=== PATIENT | female | born 1980 | race Caucasian/White ===

== ENCOUNTER 2016-03-28 09:34 | Emergency (ER) | payer BC, OTHER ==
[2016-03-28 09:58] VITALS: RESP 16; TEMP 97.9
[2016-03-28] MEDS ORDERED: ONDANSETRON 4 MG/2 ML VIAL IVP ONE (09:58)
[2016-03-28] MEDS ORDERED: NS 1,000 ML IV ONE (09:58)
--- NOTE | 2016-03-28 11:22 | UCPHY ---
H & P Time Seen by Provider: 03/28/16 10:00 Patient Type: New HPI/ROS: This patient has vomiting and diarrhea since 3:30 a.m. this morning. She has had several episodes of both. She has mild lightheadedness while on her feet this morning is unable to tolerate anything by mouth due to her ongoing nausea and vomiting. She felt well yesterday prior to the onset of the symptoms. ROS: No high fevers or chills. No myalgias. HEENT: No nasal congestion or other URI symptoms. Pulmonary: No cough. Cardiovascular: Mild lightheadedness no chest pain or heart palpitations-GI: No significant belly pain except for mild intermittent cramping : No urinary symptoms. Last menstrual period was normal timing. 10 point ROS is otherwise negative Past Medical/Surgical History: Obesity Tubal ligation Social History: Her significant other had a similar vomiting illness last week. No international travel No suspect food Smoking Status: Former smoker Physical Exam: General Appearance: Pleasant obese 36-year-old female Alert, no distress. Eyes: Pupils equal and round no pallor or injection. ENT, Mouth: Mucous membranes dry. Respiratory: There are no retractions, lungs are clear to auscultation. Cardiovascular: Regular rate and rhythm. Gastrointestinal: Soft, diffuse mild belly tenderness without guarding or rebound. No organomegaly. Neurological: Alert with no focal deficits Skin: Warm and dry, no rashes. Musculoskeletal: Neck is supple nontender. Extremities are symmetrical, full range of motion. Psychiatric: Mood and affect normal DIFFERENTIAL DIAGNOSIS: After history and physical exam differential diagnosis was considered for viral gastroenteritis, food poisoning, doubt bacterial dysentery Constitutional: Initial Vital Signs Temperature (C) 36.6 C 03/28/16 09:56 Heart Rate 100 03/28/16 09:56 Respiratory Rate 16 03/28/16 09:56 Blood Pressure 129/80 H 03/28/16 09:56 O2 Sat (%) 95 03/28/16 09:56 O2 Delivery Mode Room Air Allergies/Adverse Reactions: latex Allergy (Verified 03/28/16 09:58) Home Medications: Medication Instructions Recorded Ondansetron Odt [Zofran Odt] 4 - 8 mg PO Q4PRN PRN #4 tab 03/28/16 Medical Decision Making ED Course/Re-evaluation: IV normal saline bolus, IV Zofran with resolution of nausea vomiting. She tolerated p. o. intake thereafter Discussion: Findings most consistent with viral gastroenteritis complicated by dehydration improved with treatment. - Data Points Medications Given: Discontinued Medications Sodium Chloride (Ns) 1,000 mls @ 0 mls/hr IV ONCE ONE PRN Reason: Wide Open Stop: 03/28/16 09:59 Last Admin: 03/28/16 10:20 Dose: 1,000 mls Ondansetron HCl (Zofran) 4 mg IVP EDNOW ONE Stop: 03/28/16 09:59 Last Admin: 03/28/16 10:20 Dose: 4 mg Departure - Departure Disposition: Home, Routine, Self-Care Clinical Impression: Viral gastroenteritis, Dehydration Instructions: Dehydration (ED), Gastroenteritis (ED) Additional Instructions: Diagnosis: Viral gastroenteritis Plan: Drink plenty fluids Light diet until he feel improved Zofran for nausea or vomiting as needed Imodium [id number] for diarrhea as needed Return for any significant worsening despite the treatment plan Referrals: NONE *PRIMARY CARE P,. [Primary Care Provider] - As per Instructions Prescriptions: Ondansetron Odt [Zofran Odt] 4 - 8 mg PO Q4PRN PRN #4 tab PRN Reason: Vomiting - PQRS PQRS Measurement: NA
[2016-03-28 11:41] VITALS: BP 120/78; PULSE 92; O2SAT 97
== END 2016-03-28 11:39 | disposition home or self-care (01) ==
LOC: CED 09:34
DX: A08.4 Viral intestinal infection, unspecified (principal); E86.0 Dehydration; Z87.891 Personal history of nicotine dependence
CPT/HCPCS: 96361-PO; 96374-PO; 99203-PO; G0463-PO

== ENCOUNTER → 2017-03-16 | Outpatient (CLI) | payer BC | LOC: BMCIMAGING 08:20 → EDSTATUS 08:22 | PROVIDERS: ATTEND Physician Assistant | DX: M17.12 Unilateral primary osteoarthritis, left knee (principal) ==

== ENCOUNTER → 2017-04-09 | Outpatient (CLI) | payer BC | LOC: FIMAGING 07:47 | PROVIDERS: ATTEND Physician Assistant | DX: Z01.818 Encounter for other preprocedural examination (principal); M25.862 Other specified joint disorders, left knee ==

== ENCOUNTER 2017-06-18 05:58 | Observation (INO) | payer BC ==
[2017-06-18] MEDS ORDERED: TRANEXAMIC ACID IV ONE (06:00)
[2017-06-18] MEDS ORDERED: NS IV ONE (06:00)
[2017-06-18] MEDS ORDERED: BUPI/epINEPH/KETOROLAC/morphINE IU ONE (06:00)
[2017-06-18] MEDS ORDERED: ROPIVACAINE 0.2% 80 MG, EPINEPHrine 0.2 MG, KETOROLAC TROMETHAMINE 30 MG, morphINE 10 M... IU ONE (06:00)
[2017-06-18] MEDS ORDERED: ceFAZolin 2 GM/SWFI 2 GM/20 ML SYR IVP ONE (06:10)
[2017-06-18] MEDS ORDERED: ACETAMINOPHEN 325 MG TAB PO ONE (06:10)
[2017-06-18] MEDS ORDERED: FAMOTIDINE 20 MG TAB PO ONE (06:10)
[2017-06-18] MEDS ORDERED: LR 1,000 ML IV ONE (06:13)
--- NOTE | 2017-06-18 06:40 | PDHPUP ---
History & Physical Update H&P update statement: This history and physical update is based on an assessment of the patient which was completed after admission or registration (within 24 hours), but prior to the surgery/procedure. H&P update: no change in patient's condition since H&P completed
--- NOTE | 2017-06-18 06:41 | PDIAF ---
- Diagnosis Diagnosis: left knee djd Code Status: Full Code - Medication Management Discharge Medications: Medications to Continue on Transfer Acetamn/Diphenhydramine 500/25 [Tylenol PM (*)] 1 each PO HS PRN 05/29/17 [Last Taken 06/16/17] Calcium Carbonate [Tums 500MG (*)] 500 - 1,000 mg PO TIDMEAL PRN 05/29/17 [Last Taken 06/16/17] Sertraline HCl [Zoloft 50mg (*)] 50 mg PO DAILY 05/29/17 [Last Taken 06/17/17] Discharge Medications: Refer to the Discharge Home Medication list for PRN reason. - Orders Services needed: Physical Therapy (wbat) Activity/Weight Bearing Restrictions: wbat. rom as virgilio. dressing changes. may shower without bandage. no soaking or immersion. follow up at two weeks [facility]. seek attn for increasing pain, cp, sob, leg swelling or pain, drainage - Follow Up Care Current Providers and Referrals: Leanne Finn PAC [Primary Care Provider] -
[2017-06-18] MEDS ORDERED: THROMBIN (BOVINE) 5,000 UNIT VIAL TP ONE (07:38)
[2017-06-18] MEDS ORDERED: CALCIUM CHLORIDE 1 GM/10 ML INJ ONE (07:38)
[2017-06-18] MEDS ORDERED: ceFAZolin 1 GM/5 ML SYR ONE (07:39)
--- NOTE | 2017-06-18 08:12 | PDANEPAE ---
ANE Past Medical History - Cardiovascular History Hx Hypertension: No Hx Arrhythmias: No Hx Chest Pain: No Hx Coronary Artery / Peripheral Vascular Disease: No Hx CHF / Valvular Disease: No Hx Palpitations: No - Pulmonary History Hx COPD: No Hx Asthma/Reactive Airway Disease: No Hx Recent Upper Respiratory Infection: No Hx Oxygen in Use at Home: No Hx Sleep Apnea: No Sleep Apnea Screening Result - Last Documented: Negative - Neurologic History Hx Cerebrovascular Accident: No Hx Seizures: No Hx Dementia: No - Endocrine History Hx Diabetes: No Hypothyroid: No Obesity: mild - Renal History Hx Renal Disorders: No - Liver History Hx Hepatic Disorders: No - Neurological & Psychiatric Hx Hx Neurological and Psychiatric Disorders: Yes Neurological / Psychiatric History Comment: INFREQUENT MIGRAINES. BIPOLAR - Cancer History Hx Cancer: No - Congenital Disorder History Hx Congenital Disorders: No - GI History Hx Gastrointestinal Disorders: Yes Gastrointestinal History Comment: DAILY HEARTBURN USES TUMES. HAS HIATAL HERNIA - Other Health History Other Health History: SEVERAL PREV INJURIES TO THE KNEE - Chronic Pain History Chronic Pain: Yes (LT KNEE) - Surgical History Prior Surgeries: TUBAL LIGATION 2007. LEEP. EGD ANE Review of Systems Review of Systems: - Exercise capacity METS (RN): 4 METS - Systems Constitutional: Reports: no symptoms Cardiac: Reports: no symptoms Respiratory: Reports: no symptoms Gastrointestinal: Reports: no symptoms ANE Patient History - Allergies Allergies/Adverse Reactions: latex Allergy (Verified 03/28/16 09:58) shellfish derived Allergy (Verified 05/29/17 10:47) - Home Medications Home Medications: Acetamn/Diphenhydramine 500/25 [Tylenol PM (*)] 1 each PO HS PRN 05/29/17 [Last Taken 06/16/17] Calcium Carbonate [Tums 500MG (*)] 500 - 1,000 mg PO TIDMEAL PRN 05/29/17 [Last Taken 06/16/17] Sertraline HCl [Zoloft 50mg (*)] 50 mg PO DAILY 05/29/17 [Last Taken 06/17/17] - NPO status NPO Since - Liquids (Date): 06/17/17 NPO Since - Liquids (Time): 20:30 NPO Since - Solids (Date): 06/17/17 NPO Since - Solids (Time): 20:30 - Anes Hx Anes Hx: no prior problems - Smoking Hx Smoking Status: Former smoker - Alcohol Use Alcohol Use: Rarely - Family Anes Hx Family Anes Hx: neg - N/A ANE Labs/Vital Signs - Vital Signs Blood Pressure: 131/81 Heart Rate: 86 Respiratory Rate: 16 O2 Sat (%): 96 Height: 175.26 cm Weight: 118.841 kg ANE Physical Exam - Airway Neck exam: FROM Mallampati Score: Class 2 Mouth exam: normal dental/mouth exam - Pulmonary Pulmonary: clear to auscultation - Cardiovascular Cardiovascular: regular rate and rhythym - ASA Status ASA Status: II ANE Anesthesia Plan Anesthesia Plan: spinal Regional Anesthesia: adductor canal FNB
[2017-06-18] MEDS ORDERED: RANITIDINE 50 MG/2 ML VIAL ONE (08:14)
[2017-06-18] MEDS ORDERED: DEXAMETHASONE 4 MG/ML VIAL ONE (08:14)
[2017-06-18] MEDS ORDERED: fentaNYL 100 MCG/2 ML INJ ONE (08:14)
[2017-06-18] MEDS ORDERED: LIDOCAINE 2% 5 ML SDV ONE (08:24)
[2017-06-18] MEDS ORDERED: PROPOFOL/EMULSION 500 MG/50 ML BOTTLE IV ONE ×2 (08:24→08:53)
[2017-06-18] MEDS ORDERED: ROPIVACAINE HCL 150 MG/30 ML INJ ONE (08:49)
[2017-06-18] MEDS ORDERED: diphenhydrAMINE 25 MG CAP PO PRN (09:18)
[2017-06-18] MEDS ORDERED: ONDANSETRON DISINTEGRATING 4 MG TAB PO PRN (09:18)
[2017-06-18] MEDS ORDERED: oxyCODONE IR 5 MG TAB PO PRN ×2 (09:18→09:27)
[2017-06-18] MEDS ORDERED: PROMETHAZINE HCL 25 MG/ML INJ IVP PRN (09:18)
[2017-06-18] MEDS ORDERED: MAGNESIUM HYDROXIDE 30 ML UDCUP PO PRN (09:18)
[2017-06-18] MEDS ORDERED: LACTULOSE 20 GM/30 ML UDCUP PO PRN (09:18)
[2017-06-18] MEDS ORDERED: DIPHENOXYLATE/ATROPINE LOMOTIL 1 TAB PO PRN (09:18)
[2017-06-18] MEDS ORDERED: TEMAZEPAM 15 MG CAP PO PRN (09:18)
[2017-06-18] MEDS ORDERED: DIAZEPAM 5 MG TAB PO PRN (09:18)
[2017-06-18] MEDS ORDERED: METOCLOPRAMIDE 10 MG/2 ML VIAL IVP PRN (09:18)
[2017-06-18] MEDS ORDERED: ONDANSETRON 4 MG/2 ML VIAL IVP PRN ×2 (09:18→09:27)
[2017-06-18] MEDS ORDERED: PROMETHAZINE HCL 25 MG SUPPR PR PRN (09:18)
[2017-06-18] MEDS ORDERED: POLYETHYLENE GLYCOL 3350 17 GM PKT PO PRN (09:18)
[2017-06-18] MEDS ORDERED: BISACODYL 10 MG SUPP PR PRN (09:18)
[2017-06-18] MEDS ORDERED: NALOXONE HCL 0.4 MG/ML INJ IVP PRN ×2 (09:26→09:27)
[2017-06-18] MEDS ORDERED: fentaNYL 100 MCG/2 ML INJ IVP PRN (09:27)
[2017-06-18] MEDS ORDERED: ACETAMINOPHEN 500 MG TAB PO PRN (09:27)
[2017-06-18] MEDS ORDERED: LR 500 ML IV PRN (09:27)
[2017-06-18] MEDS ORDERED: ALBUTEROL 3 ML DEYVIAL IH PRN (09:27)
[2017-06-18] MEDS ORDERED: DIAZEPAM 5 MG/ML 1 ML SYR IVP PRN (09:27)
[2017-06-18] MEDS ORDERED: LR 1,000 ML IV SCH (09:30)
--- NOTE | 2017-06-18 10:04 | POSTANESTH ---
Post Anesthetic Evaluation Cardiovascular Status: Normal, Stable Respiratory Status: Normal, Stable Level of Consciousness/Mental Status: Can Participate in Eval, Mildly Sleepy, Arousable Pain Control: Adequate, Prn Tx Ordered Nausea/Vomiting Control: Adequate, Prn Tx Ordered Complications Possibly Related to Anesthesia: None Noted (L AC block placed with US guidance in PACU. Pt still insensate secondary to SAB, but able to move B feet.)
[2017-06-18] MEDS: TRANEXAMIC ACID 650 MG TAB PO SCH ×2 (11:38→17:33)
[2017-06-18] MEDS: ACETAMINOPHEN 325 MG TAB PO SCH ×2 (11:41→17:31)
[2017-06-18] MEDS: ceFAZolin 2 GM/SWFI 2 GM/20 ML SYR IVP SCH ×2 (13:43→22:06)
[2017-06-18] MEDS: ASPIRIN 325 MG TAB PO SCH (22:07)
[2017-06-18] MEDS: SENNOSIDES/DOCUSATE SODIUM TAB PO SCH (22:07)
[2017-06-18] MEDS: FAMOTIDINE 20 MG TAB PO SCH (22:07)
[2017-06-19] MEDS: TRANEXAMIC ACID 650 MG TAB PO SCH ×2 (01:00→08:59)
[2017-06-19] MEDS: ACETAMINOPHEN 325 MG TAB PO SCH ×2 (01:01→05:44)
[2017-06-19] MEDS: ceFAZolin 2 GM/SWFI 2 GM/20 ML SYR IVP SCH (05:44)
--- NOTE | 2017-06-19 07:25 | SOAPPROG ---
SOAP Progress Note Assessment/Plan: Assessment: s/p partial knee Plan:stable d/c home dvt precatuions 06/19/17 07:24 Subjective: min co pain no cp or sob virgilio po Objective: Vital Signs Temp Pulse Resp BP Pulse Ox 36.7 C 77 18 139/89 H 96 06/19/17 04:27 06/19/17 04:27 06/19/17 04:27 06/19/17 04:27 06/19/17 04:27 Laboratory Results 06/19/17 04:47 06/18/17 06/19/17 06/20/17 05:59 05:59 05:59 Intake Total 4860 Output Total 1880 Balance 2980 dressing intact intact pf,df,ehl toes warm and pink neg homans pablo xrays stable alignement no fx or lucency ICD10 Worksheet Patient Problems: Problems Problem Status Onset Arthritis of knee Acute - ICD10 Problem Qualifiers (1) Arthritis of knee
--- NOTE | 2017-06-19 07:26 | PDIAF ---
- Diagnosis Diagnosis: left knee djd Code Status: Full Code - Medication Management Discharge Medications: Medications to Continue on Transfer Acetamn/Diphenhydramine 500/25 [Tylenol PM (*)] 1 each PO HS PRN 05/29/17 [Last Taken 06/16/17] Calcium Carbonate [Tums 500MG (*)] 500 - 1,000 mg PO TIDMEAL PRN 05/29/17 [Last Taken 06/16/17] Sertraline HCl [Zoloft 50mg (*)] 50 mg PO DAILY 05/29/17 [Last Taken 06/17/17] Aspirin [Aspirin 325 mg (*)] 325 mg PO DAILY tab 06/19/17 [Last Taken Unknown] oxyCODONE IR [Oxycodone Ir (*)] 5 - 10 mg PO Q3HRS PRN #70 tab 06/19/17 [Last Taken Unknown] Discharge Medications: Refer to the Discharge Home Medication list for PRN reason. - Orders Services needed: Physical Therapy Diet Recommendation: no restrictions on diet Diet Texture: Regular Texture Diet Activity/Weight Bearing Restrictions: wbat. rom as virgilio. dressing changes. may shower without bandage. no soaking or immersion. follow up at [facility] weeks [facility]. seek attn for increasing pain, cp, sob, leg swelling or pain, drainage - Follow Up Care Current Providers and Referrals: Leanne Finn PAC [Primary Care Provider] - Bentley Harkins MD [Medical Doctor] -
--- NOTE | 2017-06-19 07:41 | GDS ---
[f rep st] DISCHARGE SUMMARY ADMITTING DIAGNOSIS: Left knee arthritis-partial. DISCHARGE DIAGNOSIS: Left knee arthritis-partial. PROCEDURE: Left knee partial knee replacement-MAKOplasty. OPERATIVE INDICATIONS: Annika is a 37-year-old woman with end-stage arthritis to her medial compartm ent. She has mild chondromalacia patella and lateral compartment is intact. Given her young age and isolated arthritis, I recommended partial knee replacement. She understood the risks, benefits, alt ernatives, and wished to proceed. Written consent was signed and placed in patient's chart. HOSPITAL COURSE: Patient was admitted overnight after uncomplicated partial knee replacement. She t olerated the procedure. She had no complications. At the time of discharge, she is tolerating an oral diet. Pain is well controlled on oral medicines. She is voiding without difficulty. Dressing is clean, dry, and intact. She has negative Homans bi laterally. X-rays are anatomic. Serial hematocrits have remained stable. DISCHARGE ACTIVITY: Weightbearing as tolerated. Range of motion as tolerated. Daily dressing stone es. No soaking or immersion. May shower without the bandage. FOLLOWUP: At 2 weeks. DISCHARGE MEDICATIONS: Oxycodone 5 mg 1-2 every six hours p.r.n. pain and aspirin 325 mg p.o. daily for six weeks. /[id number]/MODL
[2017-06-19 07:54] VITALS: BP 125/76; PULSE 80; RESP 16; TEMP 98.3; O2SAT 98
[2017-06-19] MEDS: FAMOTIDINE 20 MG TAB PO SCH (08:59)
[2017-06-19] MEDS: SENNOSIDES/DOCUSATE SODIUM TAB PO SCH (08:59)
[2017-06-19] MEDS: ASPIRIN 325 MG TAB PO SCH (08:59)
[2017-06-19] MEDS ORDERED: SERTRALINE HCL 50 MG TAB PO SCH (09:00)
[2017-06-19] MEDS ORDERED: SERTRALINE HCL 50 MG PO SCH (09:00)
--- NOTE | 2017-06-20 08:57 | ASDISCHSUM ---
Discharge Information Plan Status:Home with Home Health Medically Cleared to Leave: Discharge Date:06/19/2017 11:46 AM CM D/C Disposition:Home Health Service ADT D/C Disposition:Home Health Service Projected Discharge Date:06/19/2017 11:00 AM Transportation at D/C: Discharge Delay Reason: Follow-Up Date:06/19/2017 11:00 AM Discharge Slot: Final Diagnosis: Placement Information Referral Type:*Home Health Care Services Referral ID:[id number] Provider Name:[facility] [place] Address 1:[address] Phone Number: Address 2: Fax Number: City:[place] Selection Factors: State:[place] Patient Contact Information Contact Name:MILA Relationship:Life Partner Address:[address] [address] City:[place] Alternate Phone: State/Zip Code:[place] [address] Email: Financial Information Financial Class:HMO and PPO Plans Primary Plan Desc: OUT OF STATE PPO Primary Plan Number:[id number] Secondary Plan Desc: Secondary Plan Number: Assessment Information Case Management Discharge Plan Note Case Management Discharge Discharge Order Complete? Answers: Yes Patient to Obtain Answers: Independently Medications Transportation Arranged Answers: Family/Friends Faxed Final Orders Answers: Yes Family Notified Answers: Yes Discharge Comments Notes: Patient discharging home with boyfriend. [facility] PT with [facility]: I notified patient of her $18/visit tee. Date Signed: 06/19/2017 11:44 AM Electronically Signed By:Yue Gonzalez RN Intervention Information
--- NOTE | 2017-06-20 12:37 | GOP ---
[f rep st] OPERATIVE REPORT DATE OF OPERATION: 06/18/2017 SURGEON: Bentley Harkins MD GUIDE PLANT: Herbert Downey, HEAD OF MATHEMATICS, STENCIL MAKER, surgical scheduler. Brigitte Churchill PA-C Of medical necessity for entirety of the case. PREOPERATIVE DIAGNOSIS: Left knee medial compartment arthritis and patellofemoral arthritis. POSTOPERATIVE DIAGNOSIS: Left knee medial compartment arthritis and patellofemoral arthritis. PROCEDURE PERFORMED: 1. Left knee medial compartment replacement/Makoplasty. 2. Open microfracture patella. FINDINGS: DESCRIPTION OF PROCEDURE: The patient was identified in the preanesthesia area. The left knee clear ly demarcated as the operative site with indelible marker. She was given 2 g of Ancef intravenously en route to the operative suite. In the OR, spinal anesthetic was placed. She was placed in a supin e position. All bony prominences were well padded. Attention was turned to the left lower extremity , which was sterilely prepped and draped in the usual fashion. A tourniquet was applied to the upper thigh. The limb was then sterilely prepped and draped in the usual fashion. Tourniquet was inflate d to 275 mmHg. A standard anterior midline incision was made followed by medial parapatellar arthrotomy. There was isolated damage to the medial compartment with a small (1 cm) central inferior defect to the patella. Incision was made to proceed with a MAKOplasty. Two additional percutaneous wounds were made acros s the mid thigh and mid see, 2 pins were placed in each area, and the femoral tibial reference array was affixed. Femoral and tibial checkpoints were placed. All bony landmarks were entered into the computer. The knee was taken through a full range of motion and was balanced through the flexion/ext ension arc. With adjustment of the components and the tracking was appropriate, using the MAKOplasty protocol, the etchings were made for size 5 tibia and a size 4 femur. Trial reduction was carried o ut and, ultimately, a size 5 x 9 mm polyethylene spacer was selected. The trial components were with drawn. The surfaces thoroughly irrigated and cemented across the tibia and femoral components with t he final 5 x 9 mm polyethylene spacer placed. This was confirmed to be fully seated. There was no l oose debris. The patella was then everted and micro fractured with a microfracture awl through the 1 cm defect in the central inferior patella. The wound was copiously irrigated and closed in layers u sing #1 Ethibond for the medial parapatellar arthrotomy, subcutaneous tissue using a 2-0 Quill, and t he skin stapled. The margins were instilled with a joint cocktail of ropivacaine, morphine, Toradol, and epinephrine, and the knee instilled with platelet-rich plasma. A sterile dressing was applied. The patient was awakened, extubated, and taken to the recovery room in good and stable condition. OPERATIVE INDICATIONS: The patient is a 37-year-old woman who has persistent pain and end-stage arth ritis to her medial compartment with a focal chondral defect to her patella. Lateral compartment is intact. Given the persistent nature of her symptoms and failed conservative measures, I have recomme nded operative intervention. I outlined the surgical procedure, risks, benefits, and alternatives, a nd she wished to proceed. Written consent was signed and placed in the patient's chart. TOTAL TOURNIQUET TIME: 45 minutes. COMPLICATIONS: None. SPECIMENS TO PATHOLOGY: None. IMPLANTS: The Restoris MAKOplasty, size 4 femur, size 5 tibia, size 5 x 9 mm polyethylene. DISPOSITION: To the recovery room and then the floor. She is weightbearing. Range of motion as virgilio erated. /[id number]/MODL
== END 2017-06-19 11:46 | disposition home health service (06) ==
LOC: INTOOBSV 05:58 → F3N 05:58
PROVIDERS: ADMIT Orthopaedic Surgery; ATTEND Orthopaedic Surgery
PROC: 0SRD0KZ Replacement of Left Knee Joint with Nonautologous Tissue Substitute, Open Approach (ICD-10-PCS; principal; 2017-06-18 08:15)
DX: M13.862 Other specified arthritis, left knee (principal)
CPT/HCPCS: 27446; 73560; 97116; 97161; 97165; G0378; C1713; J0171; J0690; J1100; J1885; J2270; J2704; J2780; J2795; J3010

== ENCOUNTER 2017-07-09 13:38 | Emergency (ER) | payer BC ==
[2017-07-09] MEDS ORDERED: ASPIRIN 81 MG CHEWABLE TAB PO ONE (14:01)
--- NOTE | 2017-07-09 14:08 | EDPHY ---
H & P Time Seen by Provider: 07/09/17 13:55 HPI/ROS: This patient presents with onset of left calf pain 4/10 intensity associated with a feeling of calf swelling since this morning. Pain worsens with walking. She is concerned about potential DVT as she is 19 days postop from uncomplicated partial knee replacement by Dr. Bentley Harkins. She had no symptoms in the calf until this morning. She had no acute trauma this morning. She actually had a postop check today and sutures/fito were removed, but she had not developed calf pain until after that appointment. ROS: Constitutional: No fevers Pulmonary: No shortness of breath or pleuritic pain Cardiovascular: No lightheadedness. No discoloration the affected calf Integumentary: No erythema to the surrounding skin around the wound. No discharge noted by patient. Musculoskeletal: No significant pain to the actual knee joint. Neuro: No numbness tingling weakness in the affected extremity. 7 point ROS is otherwise negative. Past Medical/Surgical History: Partial knee replacement 06/20/2017 by Bentley Harkins. Family history: Mother who complications of DVT/PE per patient's verbal history Smoking Status: Current some day smoker Physical Exam: Physical Exam Vital signs are normal. General: No acute distress Eyes: Pupils equal and react to light. Extraocular motions are intact. Lungs: No respiratory distress. Cardiac: Brisk capillary refill is intact throughout. Pulses are 2+ and symmetric in the affected extremity. Extremities: Atraumatic normal except for left lower extremity Left lower extremity: Patient has mild swelling and posterior calf tenderness. Positive Makiel's. There is an anterior surgical incision to the anterior knee region vertically with no warmth tenderness or fluctuance. Appears clean dry and intact. No significant knee effusion. Skin: No rash or pallor. Neuro: Alert and oriented x3 with no sensorimotor deficits in the affected lower extremity. Initial differential diagnosis: DVT, calf muscle strain, postop swelling, dependent edema Constitutional: Initial Vital Signs Temperature (C) 37.1 C 07/09/17 13:49 Heart Rate 89 07/09/17 13:49 Respiratory Rate 16 07/09/17 13:49 Blood Pressure 123/79 H 07/09/17 13:49 O2 Sat (%) 95 07/09/17 13:49 O2 Delivery Mode Room Air Allergies/Adverse Reactions: latex Allergy (Verified 07/09/17 13:47) shellfish derived Allergy (Verified 07/09/17 13:47) Home Medications: Medication Instructions Recorded Calcium Carbonate [Tums 500MG (*)] 500 - 1,000 mg PO TIDMEAL PRN 05/29/17 Sertraline HCl [Zoloft 50mg (*)] 50 mg PO DAILY 05/29/17 oxyCODONE IR [Oxycodone Ir (*)] 5 - 10 mg PO Q3HRS PRN #70 tab 06/19/17 MDM/Departure - MDM Imaging Results: Imaging Impressions Extremity Venous Study 07/09/17 14:01 Impression: No evidence of deep venous thrombosis left leg. Not diagnostically evaluated calf veins. Imaging: Discussed imaging studies w/ lone lead lineman Radiologist Medications Given: Discontinued Medications Aspirin (Aspirin) 324 mg PO EDNOW ONE Stop: 07/09/17 14:02 Last Admin: 07/09/17 14:16 Dose: 324 mg ED Course/Re-evaluation: Aspirin 324 p.o. Ken wrap to thigh. Doppler ultrasounds negative for DVT. I counseled the patient regarding calf pain/strain and edema. Encouraged her to quit smoking. She will follow up with primary care physician and/or surgeon for any ongoing symptoms despite plan. - Depart Disposition: Home, Routine, Self-Care Clinical Impression: Pain of left calf Condition: Good Instructions: Muscle Strain (ED), How to Stop Smoking (ED) Additional Instructions: Diagnosis: Calf pain Your ultrasound is negative for blood clot today. Plan: Quit smoking Tylenol for pain Gentle calf stretches as described. Ken wrap for comfort Prop up her leg whenever your at rest until it improves Follow up with primary care physician or surgeon for any ongoing symptoms. Return emergency department for any significant worsening despite the treatment plan.
[2017-07-09 15:12] VITALS: BP 112/72
== END 2017-07-09 15:11 | disposition home or self-care (01) ==
LOC: CED 13:38
DX: M79.662 Pain in left lower leg (principal); F17.200 Nicotine dependence, unspecified, uncomplicated; Z91.040 Latex allergy status
CPT/HCPCS: 93971-PO

== ENCOUNTER → 2017-08-06 | Outpatient (CLI) | payer BC | LOC: BMCIMAGING 07:50 → EDSTATUS 07:51 | PROVIDERS: ATTEND Physician Assistant | DX: Z47.1 Aftercare following joint replacement surgery (principal); Z96.652 Presence of left artificial knee joint ==

== ENCOUNTER → 2017-12-26 | Outpatient (CLI) | payer BC | LOC: BMCIMAGING 15:30 | PROVIDERS: ATTEND Physician Assistant | DX: Z47.1 Aftercare following joint replacement surgery (principal); Z96.652 Presence of left artificial knee joint ==

== ENCOUNTER → 2018-06-25 | Outpatient (CLI) | payer BC | LOC: BMCIMAGING 15:05 | PROVIDERS: ATTEND Physician Assistant | DX: Z09 Encounter for follow-up examination after completed treatment for conditions other than malignant neoplasm (principal); Z96.652 Presence of left artificial knee joint ==